=== PATIENT | female | born 1960 | race Caucasian/White ===

== ENCOUNTER 2017-03-08 07:35 | Day surgery (SDC) | payer OTHER ==
[~2017-03-08] VITALS: Ht 160 cm; Wt 52.3 kg
[2017-03-08 08:11] VITALS: Ht 160 cm; Wt 52.3 kg
[2017-03-08] MEDS ORDERED: [UNRECOGNIZED DRUG - OTHER] (08:18)
[2017-03-08] MEDS ORDERED: SIMV5TAB50 PO (08:18)
[2017-03-08 08:43] VITALS: BP 132/60; PULSE 47; RESP 17
[2017-03-08] MEDS ORDERED: ATROPINE 1 MG/10 ML SYRINGE ONE (10:10)
[2017-03-08] MEDS ORDERED: FENTAnyl 50 MCG/ML VIAL ONE (10:10)
[2017-03-08] MEDS ORDERED: MIDAZOLAM 1 MG/ML 2 ML INJ ONE ×2 (10:10)
[2017-03-08 10:30] VITALS: BP 116/57; RESP 16
--- NOTE | 2017-03-08 12:34 | GILP ---
DATE OF PROCEDURE: PROCEDURE PERFORMED: Colonoscopy with biopsy. INDICATION: A 56-year-old female undergoing this procedure for screening colonoscopy. The risk of the procedure, related and unrelated complications, sedative risks, alternatives discussed and infor med consent was obtained. DESCRIPTION OF PROCEDURE: The patient was brought to the GI lab and sedated with Versed 3 mg and 50 mcg of fentanyl. After obtaining optimal sedation, scope was passed with much ease into rectum at 40 cm. Her usual heart rate was around 44, dropped down to 40, so decided to give atropine. Atropi ne was given 0.6 mg, heart rate bounced back to 57. Scope was advanced further all the way into the cecum. The patient had a very tortuous colon and also had melanosis coli. Appendiceal orifice was normal. IC valve was normal. While coming out, mucosa thoroughly inspected. The rest of the colo n was normal. Retroflexion was normal, digital examination also appeared normal. Scope was straigh tened out and removed with good patient tolerance. IMPRESSION: 1. Normal digital exam. 2. Melanosis coli. 3. Negative all the way into the cecum. 4. 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 5. Tortuous colon. 6. Clarity and cleanliness was good. PLAN: Patient is to stay on high-fiber diet and refrain from any kind of Senna or herbal tea. Dictated By: ALMA HANSEN/DARWIN Conf#: [id number] DID#: [id number]
== END 2017-03-08 11:27 | disposition home or self-care (01) ==
LOC: GIL 07:35
PROVIDERS: ATTEND Internal Medicine Gastroenterology
DX: Z12.11 Encounter for screening for malignant neoplasm of colon (principal); K57.90 Diverticulosis of intestine, part unspecified, without perforation or abscess without bleeding; I10 Essential (primary) hypertension; E78.5 Hyperlipidemia, unspecified
CPT/HCPCS: 45378; J0461; J2250; J3010; Z7610